=== PATIENT | male | born 1960 | race Caucasian/White ===

== ENCOUNTER 2018-07-25 20:46 | Emergency (ER) | payer OTHER ==
[~2018-07-25] VITALS: Ht 190.5 cm; Wt 97.5 kg
[2018-07-25] MEDS ORDERED: ASPIRIN 325 MG TABLET PO ONE (21:30)
[2018-07-25] MEDS ORDERED: IV NORMAL SALINE 1000ML BAG 1,000 ML IV ONE (21:30)
[2018-07-25 21:38] LABS: BASO # 0.1 x10^3/uL (0.0-0.2); BASO % 1 % (0-3); EOS # 0.4 x10^3/uL (0.0-0.7); EOS % 6 % (0-3); HEMOGLOBIN 14.4 g/dL (13.0-17.5); LYMPH # 1.1 x10^3/uL (1.0-4.8); LYMPH % 20 % (24-48); MEAN CORPUSCULAR HEMOGLOBIN 30 pg (25-35); MEAN CORPUSCULAR HGB CONC 33 g/dL (31-37); MEAN CORPUSCULAR VOLUME 90 fL (79-100); MONO # 0.4 x10^3/uL (0.0-1.1); MONO % 8 % (0-9); NEUT # 3.7 x10^3uL (1.8-7.7); NEUT % 65 % (31-73); PLATELET COUNT 204 x10^3/uL (140-400); RED BLOOD COUNT 4.79 x10^6/uL (4.30-5.70); WHITE BLOOD COUNT 5.6 x10^3/uL (4.0-11.0)
[2018-07-25] MEDS ORDERED: DEXAMETHASONE SOD PHOS 20 MG/5 ML VIAL. IV ONE (21:45)
[2018-07-25 21:49] LABS: CREATININE 0.8 mg/dL (0.7-1.3); GFR 100.4; POTASSIUM 3.7 mmol/L (3.5-5.1)
[2018-07-25 21:55] LABS: PROTHROMBIN TIME PATIENT 12.5 SEC (11.7-14.0)
[2018-07-25 22:04] LABS: ALBUMIN 3.3 g/dL (3.4-5.0); CREATINE KINASE 68 U/L (39-308); MAGNESIUM 2.2 mg/dL (1.8-2.4); TOTAL BILIRUBIN 0.2 mg/dL (0.2-1.0); TOTAL PROTEIN 6.6 g/dL (6.4-8.2)
--- NOTE | 2018-07-25 22:35 | RAD ---
CHEST PA LATERAL History: Chest pain Comparison: None. Findings: 2 views of the chest are submitted. There is some patchy bibasilar airspace opacity. There is no dependent pleural fluid or pneumothorax. Heart size is upper limits of normal. Impression: 1. There is some patchy bibasilar airspace opacity, could be due to atelectasis or mild infiltrate. Electronically signed by: Yusef De La Torre MD (07/25/2018 10:33 PM) [facility]
[2018-07-25] MEDS ORDERED: AZIT250T PO (22:58)
[2018-07-25] MEDS ORDERED: PRED20TA PO (22:58)
[2018-07-25] MEDS ORDERED: ALBU2.5V8 INH (22:58)
--- NOTE | 2018-07-25 22:58 | PHYS DOC ---
Past Medical History Past Medical History: Bronchitis Past Surgical History: Other Additional Past Surgical Histo: RIGHT KNEE SX Additional Information: Nonsmoker Alcohol Use: Rarely Drug Use: None Adult General Chief Complaint Chief Complaint: CHEST PAIN HPI HPI Patient is a 57 year old male who presents with chest pain. This is a chronic intermittent issue, this episode is been happening for the last 1.5 weeks. Before presenting to the ED, he was driving his daughter home and his chest got tight. The tightness is located across his entire chest wall and under his rib cage. He took a puff of his daughter's inhaler which helped with the tightness. He now has mild pain on the inferior right chest which does not radiate and he can point to with a finger. He reports increasing shortness of breath with exertion. Symptoms are worse at night and he coughs every morning which produces white mucous. These are chronic issues. Patient stated that he is diagnosed with bronchitis nearly every winter. Denies fever/chills. Review of Systems Review of Systems Constitutional: Denies fever or chills [] Eyes: Denies change in visual acuity, redness, or eye pain [] HENT: Denies nasal congestion or sore throat [] Respiratory: Reports productive cough; denies shortness of breath [] Cardiovascular: Reports chest pain GI: Denies abdominal pain, nausea, vomiting, or diarrhea [] : Denies dysuria or hematuria [] Musculoskeletal: Denies back pain or joint pain [] Integument: Denies rash or skin lesions [] Neurologic: Denies headache, focal weakness or sensory changes [] Complete systems were reviewed and found to be within normal limits, except as documented in this note. Current Medications Current Medications Current Medications Medications (Trade) Dose Ordered Sig/[place] Start Time Stop Time Status Last Admin Dose Admin Aspirin (Tres Aspirin) 325 mg 1X ONCE 07/25/18 21:30 07/25/18 21:31 DC 07/25/18 21:30 325 MG Dexamethasone Sodium Phosphate (Decadron) 10 mg 1X ONCE 07/25/18 21:45 07/25/18 21:46 DC 07/25/18 22:15 10 MG Sodium Chloride 1,000 ml @ 1,000 mls/hr 1X ONCE 07/25/18 21:30 07/25/18 22:29 DC 07/25/18 22:15 1,000 MLS/HR Allergies Allergies Allergies Coded Allergies Type Severity Reaction Last Updated Verified No Known Drug Allergies 07/25/18 No Physical Exam Physical Exam Constitutional: Well developed, well nourished, no acute distress, non-toxic appearance. [] HENT: Normocephalic, atraumatic, oropharynx moist Eyes: EOMI, conjunctiva normal, no discharge. [] Neck: Normal range of motion, no tenderness, supple, no stridor. [] Cardiovascular: Heart rate regular rhythm, no murmur [] Lungs & Thorax: Bilateral breath sounds equal. Notable expiratory wheezing with forced exhalation. No crackles or rhonchi. [] Abdomen: Soft, no tenderness [] Skin: Warm, dry, no erythema, no rash. [] Back: No tenderness, no CVA tenderness. [] Extremities: No tenderness, ROM intact, no edema. [] Neurologic: Alert and oriented X 3, normal motor function, normal sensory function, no focal deficits noted. [] Psychologic: Affect normal, judgement normal, mood normal. [] Current Patient Data Vital Signs Vital Signs Date Time Temp Pulse Resp B/P (MAP) Pulse Ox O2 Delivery O2 Flow Rate FiO2 07/25/18 23:00 73 152/84 (106) 96 Room Air 07/25/18 22:30 24 07/25/18 20:50 97.5 97.5 Lab Values Laboratory Tests Test 07/25/18 21:30 White Blood Count 5.6 x10^3/uL (4.0-11.0) Red Blood Count 4.79 x10^6/uL (4.30-5.70) Hemoglobin 14.4 g/dL (13.0-17.5) Hematocrit 43.0 % (39.0-53.0) Mean Corpuscular Volume 90 fL (79-100) Mean Corpuscular Hemoglobin 30 pg (25-35) Mean Corpuscular Hemoglobin Concent 33 g/dL (31-37) Red Cell Distribution Width 14.0 % (11.5-14.5) Platelet Count 204 x10^3/uL (140-400) Neutrophils (%) (Auto) 65 % (31-73) Lymphocytes (%) (Auto) 20 % (24-48) L Monocytes (%) (Auto) 8 % (0-9) Eosinophils (%) (Auto) 6 % (0-3) H Basophils (%) (Auto) 1 % (0-3) Neutrophils # (Auto) 3.7 x10^3uL (1.8-7.7) Lymphocytes # (Auto) 1.1 x10^3/uL (1.0-4.8) Monocytes # (Auto) 0.4 x10^3/uL (0.0-1.1) Eosinophils # (Auto) 0.4 x10^3/uL (0.0-0.7) Basophils # (Auto) 0.1 x10^3/uL (0.0-0.2) Prothrombin Time 12.5 SEC (11.7-14.0) Prothrombin Time INR 1.0 (0.8-1.1) D-Dimer (Terese) < 0.27 ug/mlFEU Sodium Level 143 mmol/L (136-145) Potassium Level 3.7 mmol/L (3.5-5.1) Chloride Level 106 mmol/L (98-107) Carbon Dioxide Level 27 mmol/L (21-32) Anion Gap 10 (6-14) Blood Urea Nitrogen 20 mg/dL (8-26) Creatinine 0.8 mg/dL (0.7-1.3) Estimated GFR (Cockcroft-Gault) 100.4 BUN/Creatinine Ratio 25 (6-20) H Glucose Level 151 mg/dL (70-99) H Calcium Level 9.0 mg/dL (8.5-10.1) Magnesium Level 2.2 mg/dL (1.8-2.4) Total Bilirubin 0.2 mg/dL (0.2-1.0) Aspartate Amino Transferase (AST) 13 U/L (15-37) L Alanine Aminotransferase (ALT) 21 U/L (16-63) Alkaline Phosphatase 63 U/L (46-116) Creatine Kinase 68 U/L (39-308) Creatine Kinase MB (Mass) 1.4 ng/mL (0.0-3.6) Creatine Kinase MB Relative Index % (0-4) Troponin I Quantitative < 0.017 ng/mL (0.000-0.055) DW-Ede-E-Type Natriuretic Peptide 65 pg/mL (0-124) Total Protein 6.6 g/dL (6.4-8.2) Albumin 3.3 g/dL (3.4-5.0) L Albumin/Globulin Ratio 1.0 (1.0-1.7) Lipase 108 U/L (73-393) Laboratory Tests 07/25/18 21:30 Laboratory Tests 07/25/18 21:30 EKG EKG EKG at 2049 on 07/25/2018. EKG is sinus rhythm at 75 bpm. No STEMI or NSTEMI noted. Interpretation Time: 2053 Radiology/Procedures Radiology/Procedures PROCEDURE: CHEST PA & LATERAL CHEST PA LATERAL History: Chest pain Comparison: None. Findings: 2 views of the chest are submitted. There is some patchy bibasilar airspace opacity. There is no dependent pleural fluid or pneumothorax. Heart size is upper limits of normal. Impression: 1. There is some patchy bibasilar airspace opacity, could be due to atelectasis or mild infiltrate. Electronically signed by: Yusef De La Torre MD (07/25/2018 10:33 PM) [facility] Course & Med Decision Making Course & Med Decision Making Pertinent Labs and Imaging studies reviewed. (See chart for details) Patient is a 57-year-old male presented to the ED with chest pain. EKG showed no signs of ischemia. Troponin negative. History and exam appeared to be more pulmonary and musculoskeletal in origin. Chest x-ray showed bibasilar opacities with suspicion for atelectasis or mild infiltrates. Labs are stable with no signs of infection. HEART score 1: Patient stable for discharge home with outpatient follow-up with PCP. Discussed findings and plan with patient, who acknowledges understanding and agreement. Dragon Disclaimer Dragon Disclaimer This electronic medical record was generated, in whole or in part, using a voice recognition dictation system. Departure Departure Impression: Primary Impression: Acute bronchitis Disposition: HOME, SELF-CARE Condition: STABLE Referrals: NO PCP (PCP) Patient Instructions: Acute Bronchitis, [id number] Scripts Azithromycin (ZITHROMAX) 250 Mg Tablet 1 PKG PO UD, #6 TAB Take 2 tablets on day 1 and then 1 tablet each day for the next 4 days as directed Prov: ABBY JIMENEZ DO 07/25/18 Prednisone (PREDNISONE) 20 Mg Tablet 2 TAB PO DAILY, #8 TAB Prov: ABBY JIMENEZ DO 07/25/18 Albuterol Sulfate (PROAIR HFA INHALER) 8.5 Gm Hfa.aer.ad 1 PUFF INH PRN Q6HRS PRN for WHEEZING, #1 INHALER 0 Refills Prov: ABBY JIMENEZ DO 07/25/18 Problem Qualifiers Primary Impression: Acute bronchitis Bronchitis organism: unspecified organism Qualified Codes: J20.9 - Acute bronchitis, unspecified ABBY JIMENEZ DO Jul 25, 2018 22:58
[2018-07-25 23:00] VITALS: BP 152/84
--- NOTE | 2018-07-26 07:07 | EKG ---
[facility] [address] [place] [address] Test Date: 2018-07-25 Test Time: 20:50:23 Pat Name: CHANNING CARRERA Department: Room: Gender: M [employer]: : [id number] Requested By: ABBY JIMENEZ Order Number: [id number] Reading MD: Fish Worley MD Measurements Intervals [place] Rate: 77 P: 57 NC: 160 QRS: -21 QRSD: 112 T: 71 QT: 364 QTc: 414 Interpretive Statements SINUS RHYTHM Electronically Signed On 07-27-2018 11:31:01 [employer] by Fish Worley MD
== END 2018-07-25 23:25 | disposition home or self-care (01) ==
LOC: ER 20:46
DX: J20.9 Acute bronchitis, unspecified (principal)
CPT/HCPCS: 36415; 71046; 80053; 82553; 83690; 83735; 83880; 84484; 85025; 85379; 85610; 93005; 96374; 99284; J1100; J7030